=== PATIENT | male | born 1995 | race Caucasian/White ===

== ENCOUNTER 2024-07-03 19:38 | Emergency (ER) | payer BC, SELFPAY ==
[2024-07-03 19:39] VITALS: BP 128/81; PULSE 100; RESP 16; TEMP 36.6; O2SAT 100
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
--- NOTE | 2024-07-03 20:07 | RAD_ITS ---
PROCEDURE: KNEE 4 OR MORE VIEWS 07/03/2024 REASON FOR EXAM: INJURY/PAIN TECHNIQUE: 5 views of the right knee COMPARISON: None FINDINGS: Bones: No fracture. No suspicious bone lesion. Posterior fabella. Joints: Normal alignment. Mild degenerative changes. Effusion: Small suprapatellar joint effusion. Soft tissues: Soft tissues are unremarkable. Other: RAD/Knee 4 or More Views IMPRESSION: No acute fracture or dislocation. Small suprapatellar joint effusion. Reading Location: [facility]
[2024-07-03 20:20] VITALS: BMI 35.7
[2024-07-03 21:17] VITALS: BP 124/74; PULSE 73; RESP 16; TEMP 36.6; O2SAT 99
== END 2024-07-03 21:19 | disposition home or self-care (01) ==
PROVIDERS: Emergency Provider Emergency Medicine; Visit Provider Emergency Medicine
DX: S83.411A Sprain of medial collateral ligament of right knee, initial encounter (principal); F17.290 Nicotine dependence, other tobacco product, uncomplicated; V86.55XA Driver of 3- or 4- wheeled all-terrain vehicle (ATV) injured in nontraffic accident, initial encounter
CPT/HCPCS: 73564; 99284

== ENCOUNTER → 2024-07-05 | Outpatient (CLI) | payer BC, SELFPAY ==
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
--- NOTE | 2024-07-05 17:20 | MRI_ITS ---
PROCEDURE: LOWER EXT JOINT ONLY (ROUTINE) 07/05/2024 REASON FOR EXAM: ASSESS MCL TEAR, AND MENISCUS TECHNIQUE: MRI of the right lower Extremity. Multiplanar and multisequence images were obtained without IV contrast administration. COMPARISON: COMPARISON : None. FINDINGS: Bone Marrow: Minimal marrow contusion of the posterior lateral tibial plateau (grade 3 injury). Marrow signal is otherwise normal throughout. Cartilage is normal in all compartments. Effusion: Small joint effusion. Soft Tissues: Moderate subcutaneous edema surrounding the knee. Ligaments and Tendons: Acute complete tear through the midportion of the ACL. PCL is intact. The lateral meniscus is normal. The medial meniscus is normal. The quadriceps and patellar tendons are intact. The medial collateral ligament is lax and torn from its tibial attachment (grade 3 injury) and subsequently lax. The MCL femoral attachment remains intact. LCL is intact. Edema of the lateral head gastrocnemius consistent with muscle strain. MRI/Lower Ext Joint Only (Routine) IMPRESSION: 1. Acute ACL tear through its midsubstance. 2. Complete rupture of the distal MCL, from the tibial attachment. Tendon is subsequently lax. 3. Normal menisci. 4. No fracture. Minimal contusion of the posterior lateral tibial plateau. 5. Small joint effusion. Reading Location: [facility]
== END | disposition home or self-care (01) ==
LOC: MRI 15:33
PROVIDERS: Referring Provider Orthopaedic Surgery Sports Medicine; Visit Provider Orthopaedic Surgery Sports Medicine
DX: Z01.818 Encounter for other preprocedural examination (principal); S83.411A Sprain of medial collateral ligament of right knee, initial encounter; M25.561 Pain in right knee; V86.99XA Unspecified occupant of other special all-terrain or other off-road motor vehicle injured in nontraffic accident, initial encounter
CPT/HCPCS: 70030; 73721

== ENCOUNTER 2024-07-26 07:24 | Day surgery (SDC) | payer BC, SELFPAY ==
[2024-07-26] VITALS (11 sets, daily range): BP systolic 124–149; BP diastolic 80–101; PULSE 60–87; RESP 14–18; TEMP 35.8–36.4; O2SAT 96–100; BMI 34.9
[2024-07-26] MEDS: Lactated Ringers 1,000 ML 15 ML IV (07:58)
--- NOTE | 2024-07-26 08:22 | HP.PCM_ITS ---
HPI - General HPI Narrative CARY FREDERICK, is a 29 M who presents for right knee arthroscopy, anterior cruciate ligament reconstruction with quadriceps tendon autograft as well as MCL repair. No changes to h and p. right knee marked. rab, post op instructions, narcotic counselling done. plan for possible block. ok to proceed. no further questions or concerns. has FU booked for in 2 days. MR#: [id number] Acct: [id number] Name: CARY FREDERICK Rep #: [id number] : 1995 Provider: Dr. Elio Solis MD Age/Sex: 29/M Location: [facility] Status: Signed Intake Vital Signs 07/04/2509:45 07/06/2514:46 Height 6 ft 6 ft Weight: 263 lb 263 lb BMI 35.6 35.6 Intake Visit Reasons: RIGHT KNEE Chief Complaint: MRI review Accompanied by: Is patient in pain?: No Allergies No Known Allergies Allergy (Verified 07/06/24 15:49) Medications ?Medication ?Instructions ?Recorded ?Confirmed ?Type ibuprofen 200 mg tablet (Advil) 200 mg PO Q6H PRN 07/04/24 07/06/24 Hist ory Have you fallen in the past year?: No PFSH Medical History Right ACL tear Right knee pain Social History Smoking Status: Current every day smoker tobacco type: e-cigarettes alcohol intake: current alcohol intake frequency: a few times a week HPI RIGHT KNEE Details: This documentation accurately reflects the service provided and the decisions made by me, Dr. Elio Solis MD 07/06/24 0946. Part of today?s visit was documented by [ ], acting as scribe. CARY FREDERICK is a 29 year old M here today for FU R knee MRI. Supplemental Info [facility] [address] [place] [address] Lower Ext Joint Only (Routine) MR#: [id number] Acct: [id number] Name: CARY FREDERICK Rep #: [id number] : 1995 M 29 From: Pop Harmon DO PCP: Care Physician,No Primary Status: REG CLI Study: Lower Ext Joint Only (Routine) Date of Exam: 07/05/24 Exam# [id number] Ordering Dr: Elio Solis MD PROCEDURE: LOWER EXT JOINT ONLY (ROUTINE) 07/05/2024 REASON FOR EXAM: ASSESS MCL TEAR, AND MENISCUS TECHNIQUE: MRI of the right lower Extremity. Multiplanar and multisequence images were obtained without IV contrast administration. COMPARISON: COMPARISON : None. FINDINGS: Bone Marrow: Minimal marrow contusion of the posterior lateral tibial plateau (grade 3 injury). Marrow signal is otherwise normal throughout. Cartilage is normal in all compartments. Effusion: Small joint effusion. Soft Tissues: Moderate subcutaneous edema surrounding the knee. Ligaments and Tendons: Acute complete tear through the midportion of the ACL. PCL is intact. The lateral meniscus is normal. The medial meniscus is normal. The quadriceps and patellar tendons are intact. The medial collateral ligament is lax and torn from its tibial attachment (grade 3 injury) and subsequently lax. The MCL femoral attachment remains intact. LCL is intact. Edema of the lateral head gastrocnemius consistent with muscle strain. MRI/Lower Ext Joint Only (Routine) IMPRESSION: 1. Acute ACL tear through its midsubstance. 2. Complete rupture of the distal MCL, from the tibial attachment. Tendon is subsequently lax. 3. Normal menisci. 4. No fracture. Minimal contusion of the posterior lateral tibial plateau. 5. Small joint effusion. Reading [facility] Coding Level of Care Code Off vis,est,level 4 Diagnoses MCL sprain of right knee S83.411A Right ACL tear S83.511A Assessment and Plan Assessment and Plan (1) MCL sprain of right knee: Status: Acute Plan: 29-year-old man with a right knee full-thickness ACL tear and type III high- grade tear of the MCL from the tibial attachment. No meniscus tears or cartilage lesions. I explained the diagnosis prognosis of treatment options available to the patient. 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 Without surgery there be a higher chance of a subsequent secondary meniscus tears and cartilage lesions and risk of arthritis of the knee as well as instability when the kt michael is doing his job. Surgery be in the form of right knee anterior cruciate ligament reconstruction with quadriceps tendon autograft as well as MCL repair given the high-grade nature and gapping of the medial side with an internal brace construct to protect the repair. 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 He understands wished to go ahead with operation we will get this on hopefully within the next 3 to 4 weeks as soon as possible. Pros and cons risks and benefits were discussed with the patient including but not limited to infection, pain, stiffness, bleeding, damage to surrounding structures, neurovascular injury, recurrence or retear, failure or wear of hardware or fixation, instability, fracture, deep vein thrombosis and pulmonary embolism, anesthetic risks, , patient dissatisfaction, need for further surgery and other risks. Patient understood and wished to proceed with surgery, and signed the informed consent documentation. (2) Right ACL tear: Status: Acute Clinical Quality Measures Falls Risk Screening/Assistive Devices Have you fallen in the past year?: No Ortho Exam General General: Yes no acute distress Neurologic: Yes alert and Yes oriented x3 Psychologic: Yes reasonable and appropriate [facility] Medical History (Updated 07/13/24 @ 10:25 by Micaela Kovacs) Alcohol use Smoker History of edema Right ACL tear Right knee pain Home Medications ?Medication ?Instructions ?Recorded ?Last Taken ?Type ibuprofen 200 mg tablet (Advil) 600 mg PO Q6H PRN pain 07/04/24 Unknown History Allergy/AdvReac Type Severity Reaction Status Date / Time No Known Allergies Allergy Verified 07/26/24 07:47 Surgical History (Updated 07/13/24 @ 10:25 by Micaela Kovacs) No history of previous surgery Social History Smoking Status: Current every day smoker tobacco type: e-cigarettes alcohol intake: current alcohol intake frequency: a few times a week Vital Signs Vital Signs Vital Signs: 07/26/24 07:48 07/26/24 07:48 Temperature 96.5 F L Temperature Source Temporal Pulse Rate 76 Respiratory Rate 18 Respiratory Pattern Normal Blood Pressure 130/86 H Blood Pressure Mean 100 Blood Pressure Source Monitor Blood Pressure Position Semi-Fowlers Blood Pressure Location Left Arm Pulse Ox 97 Oxygen Delivery Method Room Air Weight Weight: 257 lb 15.053 oz Body Mass Index (BMI) 34.9
--- NOTE | 2024-07-26 08:22 | PCM.PRE.AN2 ---
ASA Classification* ASA Classification ASA Classification: 1 Assessment & Plan Anesthesia* Anesthesia Assessment Anesthesia Assessment: Discussed sedation and/or anesthesia options, risks, benefits, and alternatives with patient/parents/legal guardian/POA. Questions invited. The patient/parents/legal guardian/POA seems to understand and agrees to proceed with anesthesia plan. Reviewed the physical assessment, medical history, allergy history and patient home medications list prior to surgery/procedure/anesthetic and documented any changes. Performed airway and anesthesia risk assessments. Anesthesia Type Anesthesia Type: General and Block (Femoral) History Source History Obtained from:: Patient and Chart Anesthesia Focused Assessment* Temperature: 96.5 F Pulse Rate: 76 Blood Pressure: 130/86 Respiratory Rate: 18 Pulse Ox: 97 Oxygen Delivery Method: Room Air Airway Assessment Mouth opens: >3 cm Mallampati Score: II Teeth Condition: Intact Neck Range of motion (ROM): Full ROM Labs Anesthesia Preop lab: CBC CHEMISTRY COAG Pre-Assessment Diagnosis/Proposed Procedure Planned Operative Procedure(s): RIGHT KNEE ARHTROSCOPY ACL RECONSTRUCTION QUADRICEPS TENDON AUTOGRAFT MEDIAL COLLATERAL LIGAMENT REPAIR WITH INTERNAL BRACE Anesthesia History 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 When Was Last Pacemaker Check QUESTION #4 FULL TEXT: You/Your Family Experience fever (hyperthermia) with Anesthesia Last Oral Intake Last Oral intake: Last Oral Intake NPO since 22:00 07/26/24 07:48 Meds taken in AM with sips of No 07/26/24 07:48 water? Meds patient instructed to take am of surgery PONV PONV - biomass production manager: PONV - biomass production manager Female No 07/13/24 10:17 HX of Motion Sickness No 07/13/24 10:17 HX of N/V After Surgery No 07/13/24 10:17 Non-Smoker No 07/13/24 10:17 Duration of Surgery greater Yes 07/13/24 10:17 than 60 minutes Number of Risk Factors 1 07/13/24 10:17 PONV Score Low Risk 07/13/24 10:17 Height & Weight Height & Weight: Anesthesia: Height & Weight Height 6 ft 07/26/24 07:48 Weight: 117 kg 07/26/24 07:48 Body Mass Index (BMI) 34.9 07/26/24 07:48 Respiratory Assessment Respiratory Assessment - biomass production manager: Respiratory Tract Infection Hx - biomass production manager Hx Respiratory Tract Infection No 07/13/24 10:17 STOP Sleep Apnea STOP Sleep Apnea - biomass production manager: STOP Sleep Apnea - biomass production manager Hx Hypertension No 07/13/24 10:17 Hx Sleep Apnea No 07/13/24 10:17 CPAP BIPAP Do you snore loudly (louder No 07/13/24 10:17 than talking or can be heard Do you often feel tired/ No 07/13/24 10:17 fatigued/ sleepy during daytime? Has anyone observed you stop No 07/13/24 10:17 breathing during sleep? STOP Results Negative 07/13/24 10:17 QUESTION #5 FULL TEXT : Do you snore loudly (louder than talking or can be heard through closed doors)? 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 Specify any problems Hx of Preganancy in last 3 N/A 07/13/24 10:17 Months Nurse Filling Out Transfusion DSCHRIBER 07/13/24 10:17 & Questions: Date: 07/13/24 07/13/24 10:17 Time: 10:20 07/13/24 10:17 Patient unable to answer at this time (ie. confused, unrespo /Reproduction History /Reproductive History - biomass production manager: /Reproductive Hx- biomass production manager Hx Now No 07/13/24 10:17 Gestational Age (in weeks): EDC: Hx Hx Para Hx Section SAB No 07/13/24 10:17 Active Medications Active Medications: Current Medications Generic Name Dose Route Start Last Admin Trade Name Freq PRN Reason Stop Dose Admin Cefazolin Sodium 2 gm/ Sodium 110 mls @ 150 mls/hr 07/26/24 09:00 Chloride IV 07/26/24 09:43 INTRAOP ONE Lactated Ringer's 1,000 mls @ 15 mls/hr 07/26/24 07:45 07/26/24 07:58 IV 15 mls/hr .Q48H AURY Administration PFSH Medical History (Updated 07/13/24 @ 10:25 by Micaela Kovacs) Alcohol use Smoker History of edema Right ACL tear Right knee pain Home Medications ?Medication ?Instructions ?Recorded ?Last Taken ?Type ibuprofen 200 mg tablet (Advil) 600 mg PO Q6H PRN pain 07/04/24 Unknown History Allergy/AdvReac Type Severity Reaction Status Date / Time No Known Allergies Allergy Verified 07/26/24 07:47 Surgical History (Updated 07/13/24 @ 10:25 by Micaela Kovacs) No history of previous surgery Social History Smoking Status: Current every day smoker tobacco type: e-cigarettes alcohol intake: current alcohol intake frequency: a few times a week Review of Systems (Anesthesia) ROS Narrative System reviewed and no additional complaints, except as documented.
[2024-07-26] MEDS: Cefazolin 2 GM in 0.9% Normal Saline (100mL Bag) 100 ML IV (08:54)
[2024-07-26] MEDS: Epinephrine (1 mg/ml) 1 MG/ML VIAL (09:55)
--- NOTE | 2024-07-26 10:10 | RAD_ITS ---
PROCEDURE: KNEE 1 OR 2 VIEWS 07/26/2024 REASON FOR EXAM: KNEE ARTHROSCOPY TECHNIQUE: KNEE 1 OR 2 VIEWS Intraoperative fluoroscopy. Fluoroscopy time 41.1 seconds. Radiation dose 2.826 mGy. COMPARISON: Radiographs on 07/03/2024. FINDINGS: No acute bone abnormality is noted. Reconstruction of the anterior cruciate ligament. RAD/Knee 1 or 2 Views IMPRESSION: Reconstruction of the anterior cruciate ligament. Reading [facility]
--- NOTE | 2024-07-26 11:55 | OP.PCM_ITS ---
Problems Associated Problem List Diagnoses (1) Right ACL tear: (2) Right knee pain: (3) MCL sprain of right knee: Procedures Musculoskeletal [id number]: Other Procedure See Report Operative Report (Standard) Operative Information Date of Procedure: 07/26/24 Pre-Operative Diagnosis: Right knee ACL tear and MCL tear Post-Operative Diagnosis: Same Surgery/Procedure Performed: Right knee arthroscopy, quadriceps tendon autograft ACL reconstruction and MCL repair with Arthrex internal brace rehab services aide: Yes Medical Art Therapist: hodan Tasks completed by medical office assistant instructor: Retracting Additional marketing communications assistant?: No Type of Anesthesia: Block,Regional and General RN Documented Start/Stop Times: Operation Date: 07/26/24 09:00 Case Time Into Pre-Op 07/26/24 07:35 Anesthesia Start 07/26/24 08:54 Into Room 07/26/24 08:54 Out of Pre-Op 07/26/24 08:54 Procedure Start 07/26/24 09:17 Procedure End 07/26/24 11:52 Procedure Start Time: 09:17 Procedure Stop Time: 11:52 Select all DRAINS/GRAFTS/IMPLANTS that apply: Implanted device Implanted device details: arthrex anchors as detailed in op note Estimated Blood Loss: 50 Specimen collected: No Description of surgery: Patient brought to the operating room theater. Placed supine on the table. General anesthesia induced. 2 g IV Ancef administered prior to the start of the procedure. All bony prominences padded. SCD on the nonoperative leg. Tourniquet applied right thigh appropriately padded stress position of the patient's right side. Lower extremity prepped and draped in the usual sterile fashion allowing over 3 minutes drying time prior to draping. Preoperative timeout was performed to confirm the site patient and the surgery. I did an examination under anesthetic. There was grade 2 Lindsay poor endpoint as well as grade 2 opening on the medial side and valgus stress. Began by elevating the limb inflated the tourniquet to 250 mmHg. He is standard anterolateral and anteromedial arthroscopy portals. Did a full diagnostic arthroscopy. Cartilage in all 3 compartments were normal. Medial lateral meniscus was normal although there was some capsular sprain on the medial side. There is obvious medial gapping and a positive drive-through sign. ACL was torn in the mid substance. I removed and debrided the remaining stump of the ACL identified the back wall. PCL was intact. Meniscus probed found to be normal on both sides. Next I turned my attention to harvesting the quadriceps tendon mid substance. Made a transverse incision at the distal quadriceps insertion. The dissection down through skin and subcutaneous tissue achieved meticulous hemostasis. H arvested a size 9 using the Arthrex quadriceps pro harvester from the central third of the quadriceps Extra-articular made a 7 cm long graft. Truncated this proximally. Close the defect [id number] running suture with the Arthrex#2 FiberWire included suture. I then all the bulletized the graft on both ends. This measured 7 cm in length. The standard technique for fixing the adjustable button on the femoral side of the graft as well as the ABS button loop system on the tibial side. Tibial side was 9.5 mm in diameter and the femoral side was 10 mm in diameter. This was placed on tension with a wet sponge. I then turned my attention back to the knee. Drilled for the femoral tunnel. This measured 5 cm in length. Ensured that this was off the back wall in appropriate low and posterior. I then retrograde drilled 3 cm at 10 mm in diameter. Cleared away any bone dust past passing suture through the tunnel and out the anterior medial portal. Then did the same thing for the tibial side in line with the anterior horn lateral meniscus. Again passed a pass suture after clearing away the bone dust. Retrograde drilled to 9.5 mm with 3 cm in length. I then passed the femoral graft up into the tibial tunnel foot the button over the graft. I took intraoperative radiographs as the femoral side was not holding this turned out to be the femoral button was flipped inside the tunnel so I did remove this and redo the femoral sided button. Second time I flipped it took intraoperative radiographs as appropriately on the lateral cortex and delivered the femoral side by pulling on the shortening sutures 3 cm into the femoral tunnel then passed it into the tibial tunnel and again shorten this and attach the tibial button to that side and shorten these appropriately. The Lindsay was laminated strong endpoint no pivot shift. Sutures were cut short. I had also attached the internal brace sutures through the femoral button I took these down just distal to the fixation and inserted those into a Arthrex 4.75 mm swivel lock anchor with no tension with the knee in full extension. The graft was also tensioned with the knee in full extension no impingement. I then turned my attention to performing the MCL repair. I made a longitudinal incision proximal anteromedial tibial side in continuity with the incision for the ACL tibial fixation side. Carried dissection down through skin and subtenons tissue achieved meticulous hemostasis. I incised the sartorial fascia. Identified the longitudinal fibers of the MCL. These were indeed torn and had a small hematoma there. I then identified proximally again using intraoperative fluoroscopy the origin of the MCL at the medial epicondyle just proximal and posterior. There are attached Arthrex all suture fiber stitch 2.7 mm anchor. Tensioned this appropriately deployed the anchor. I removed the repair sutures and then used the internal brace suture brought this down distally. I then measured 1 cm from the joint line surface I attached another 2.7 mm fiber stitch all suture Arthrex anchor. I used the included sutures to plicate and repair the superficial origin. Then I took the internal brace down distal at th e 6 cm cheng and inserted this into an Arthrex 4.75 mm swivel lock anchor with the knee in varus stress with about 30 degrees of flexion at the distal attachment point of the MCL. The repair was stable and solid without being overly tensioned. Tourniquet let down wound thoroughly irrigated meticulous hemostasis achieved. Subcutaneous tissue closed with 2-0 Vicryl and skin with 3-0 Monocryl. Skin cleaned with right dry dressing followed by application of Steri-Strips Adaptic 4 x 4 gauze ABD dressing and Branden wrap with a hinged knee brace locked in full extension. Patient woken up from general anesthetic transferred off the operating table taken to postanesthetic care unit in stable condition. All sponge needle instrument counts were correct no complications. Plan WBAT in full extension, gentle passive ROM 0-90. CPT 94501, 52483 Surgical Findings: as above Complications Complications: No Admit VTE Documentation VTE Present on Admission: No VTE Mechan Device Prophylaxis: SCD's VTE Pharm Prophylaxis ordered?: No Reason prophylaxis not ordered: Treatment Not Indicated
--- NOTE | 2024-07-26 12:07 | PCM.POST.ANE ---
Anesthesia: Postop Eval I Current Vital Signs Temperature: 97.6 F Pulse Rate: 87 Blood Pressure: 138/87 Respiratory Rate: 14 Pulse Ox: 96 Assessment Airway patent: Yes Spontaneous unlabored respirations: Yes nausea: No Vomiting: No Anesthesia Complication: No Fluid Hydration Crystalloid volume administer (ml): 1,500 Total IV fluid infused: 1,500 Progress Note Anesthesia document: Postop Eval 1 completed: Yes
--- NOTE | 2024-07-26 12:08 | EX.PCM.DISCH ---
Discharge Instructions Diet Discharge Diet: No restrictions Activity Discharge Activity: Return to Normal Activity and Use Crutches Ice area for (Minutes): 10 Weight Bearing Status: Weight bearing as tolerated Lifting Restrictions: with brace, locked straight Keep extremity elevated above heart level: Operative Extremity Dressing / Incision Call your doctor if your incision/area has: Continuous Slow Oozing, Sudden Increased Bleeding, Increased Pain/ Swelling, Increased Redness, Foul Smelling Discharge and Swelling at the incision site Call your doctor if you observe: Fever of 101 or Higher, Coldness, Increased Pain and Numbness or Tingling Change Dressing in: leave in place till F/U Cleanse incision/area with: Do not get Incision Wet Follow Up Care Please Follow Up With: Elio Solis MD When: 2 days or within 2 weeks per your preference Test Results: Test results from this visit will be discussed in further detail at your follow-up appointment, if applicable. Discharge Plan Admission Attending Provider: Elio Solis Primary Care Provider: Care Physician,No Primary Instructions Patient Instructions: After Knee Arthroscopy Print Language: Afghan Discharge Orders/Prescriptions Prescriptions: New oxycodone-acetaminophen [Percocet] 5-325 mg tablet 1 tab PO Q4H MDD 6 PRN (Reason: pain) 5 Days Qty: 30 0RF No Action ibuprofen [Advil] 200 mg tablet 600 mg PO Q6H PRN (Reason: pain) Referrals / Follow Up: Elio Solis MD [Med Staff - Active Staff] - Care Physician,No Primary [Primary Care Provider] - Disposition Disposition (needs filled in before D/C Order can be placed): Home, Self Care
--- NOTE | 2024-07-26 16:36 | POSTOPAN2_ITS ---
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 respirations Mental status nausea No 07/26/24 12:07 [employer].TNES Vomiting No 07/26/24 12:07 [employer]OR [employer].TNES Anesthesia Postop Eval I: Fluid Summary Crystalloid volume administer 1,500 07/26/24 12:07 [employer].TNES (ml) Colloids volume administered ( ml) Blood Product volume administered (ml) Total IV fluid infused 1,500 07/26/24 12:07 [employer].TNES Anesthesia Postop Eval I: Summary Notes Anesthesia Complication No 07/26/24 12:07 [employer].TNES Anesthesia Complication Comment: Post-operative progress note Anesthesia: Postop Eval II Evaluation Mental status: Awake and Calm Pain Level: 0 nausea: No Vomiting: No Complications Anesthesia Complication: No
--- NOTE | 2024-07-26 16:36 | PCM.POSTANE2 ---
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 Spontaneous unlabored Yes 07/26/24 12:07 [email or web address] [email or web address] respirations Mental status nausea No 07/26/24 12:07 [email or web address] [email or web address] Vomiting No 07/26/24 12:07 [email or web address] [email or web address] Anesthesia Postop Eval I: Fluid Summary Crystalloid volume administer 1,500 07/26/24 12:07 [email or web address] [email or web address] (ml) Colloids volume administered ( ml) Blood Product volume administered (ml) Total IV fluid infused 1,500 07/26/24 12:07 [email or web address] [email or web address] Anesthesia Postop Eval I: Summary Notes Anesthesia Complication No 07/26/24 12:07 [email or web address] [email or web address] Anesthesia Complication Comment: Post-operative progress note Anesthesia: Postop Eval II Evaluation Mental status: Awake and Calm Pain Level: 0 nausea: No Vomiting: No Complications Anesthesia Complication: No
== END 2024-07-26 14:05 | disposition home or self-care (01) ==
LOC: SDC 07:25 → AC 07:29
PROVIDERS: Referring Provider Orthopaedic Surgery Sports Medicine; Visit Provider Orthopaedic Surgery Sports Medicine
PROC: (CPT 29888; principal; 2024-07-26 08:45)
DX: S83.511A Sprain of anterior cruciate ligament of right knee, initial encounter (principal); S83.411A Sprain of medial collateral ligament of right knee, initial encounter; X58.XXXA Exposure to other specified factors, initial encounter; F17.290 Nicotine dependence, other tobacco product, uncomplicated
CPT/HCPCS: 29888; 29999; 64447; 73560; 76000; C1713; J2405

== ENCOUNTER 2024-08-01 09:11 | Emergency (ER) | payer BC, SELFPAY ==
[2024-08-01 09:11] VITALS: BP 149/92; PULSE 112; RESP 16; TEMP 36.8; O2SAT 100; BMI 34.9
--- NOTE | 2024-08-01 09:25 | VDLE_ITS ---
Reason For Study Reason For Study: RLE Pain RIGHT LEFT GSV is normal. CFV is compressible, spontaneous, phasic, competent, CFV is compressible, spontaneous, phasic, competent and demonstrates normal augmentation. and demonstrates normal augmentation. FV is compressible, spontaneous, phasic, competent and demonstrates normal augmentation. POP V is compressible, spontaneous, phasic, competent and demonstrates normal augmentation. T/P Trunk is compressible. PTV is compressible. RT PerV is compressible. Procedure This is a venous duplex using B-mode, color flow and spectral Doppler. Exam performed portable in ED. The exam was diagnostic. A preliminary report was called and/or faxed to [facility]. VL/Venous Duplex US, Unilateral Interpretation Summary Deep veins of the right lower extremity are patent and compressible segmentally . There is no evidence of right lower extremity deep vein thrombosis. The right great saphenous vein appears patent a nd compressible segmentally. Ordering Physician: Jose Palomo Performed By: Vijay Quach RVT
--- NOTE | 2024-08-01 09:25 | EX.ED.DYSGE1 ---
HPI History of Present Illness Chief Complaint: Lower Extremity Injury Narrative Narrative: Patient is a 29-year-old male with past medical history of recent surgery right ACL and MCL from [facility] who presents to the emergency department chief complaint of right leg pain. He states that he called the surgeons office today and they advised him to come to the emergency department for a ultrasound for concern for a blood clot in his leg. Patient denies any history of blood clots. PFSH PFS Medical History Alcohol use Smoker History of edema Right ACL tear Right knee pain Home Medications ?Medication ?Instructions ?Recorded ?Last Taken ?Type ibuprofen 200 mg tablet (Advil) 600 mg PO Q6H PRN pain 07/04/24 Unknown History oxycodone-acetaminophen 5 mg-325 1 tab PO Q4H PRN pain 5 days #30 07/26/24 Unknown Rx mg tablet (Percocet) tabs Allergy/AdvReac Type Severity Reaction Status Date / Time No Known Allergies Allergy Verified 08/01/24 09:13 Surgical History No history of previous surgery Social History Smoking Status: Current every day smoker tobacco type: e-cigarettes alcohol intake: current alcohol intake frequency: a few times a week ROS ROS ED ROS Narrative Cardiovascular: Denies chest pain Respiratory: Denies shortness of breath Neurological: Denies numbness, wheeze, tingling Musculoskeletal: Complains of right calf pain as noted above Skin: Denies any new rashes or lesions EXAM Physical Exam Narrative Exam Narrative: General: Patient was lying in bed rest comfortably did not appear to be in acute distress Head: Atraumatic, normocephalic Eyes: PERRL bilaterally, EOMI bilaterally, no conjunctival injection noted Neck: Soft, supple, trachea midline Cardiovascular: Patient tachycardic with regular rhythm Respiratory: Clear to auscultation bilaterally Musculoskeletal: Compartments in the right lower extremity are soft and compressible Extremities: DP pulses +2/4 in the right lower extremity, +5/5 strength noted in the bilateral upper and lower extremities Neurological: Patient follow commands knew that he was at [facility] years 2024 sensation grossly intact Skin: Warm, dry, patient has bandages noted on the right knee from his surgery no surrounding erythema noted Const Vital Signs: 08/01/24 09:11 Temperature 98.2 F Temperature Source Oral Pulse Rate 112 H Respiratory Rate 16 Blood Pressure 149/92 H Blood Pressure Mean 111 Pulse Ox 100 Oxygen Delivery Method Room Air MDM MDM MDM Narrative Medical decision making narrative: Patient is a 29-year-old male who presents to the emergency department the chief complaint of right calf pain and concern for DVT. On the differential diagnose includes but not limited to DVT, superficial venous thrombosis, calf strain. Once workup is obtained reviewed he will be reevaluated. Patient's DVT study was negative. Discussed results with patient he like to go home this point time. He is advised to follow-up with his orthopedic surgeon the outpatient setting return with worsening symptoms or concerns. He is agreeable to plan all questions answered discharged home in stable condition Discharge Plan Triage Chief Complaint: Lower Extremity Injury ED Provider: Jose Palomo Dx/Rx/DC Orders Clinical Impression: Leg pain, right, History of repair of anterior cruciate ligament of right knee, S/P MCL repair Prescriptions: No Action ibuprofen [Advil] 200 mg tablet 600 mg PO Q6H PRN (Reason: pain) oxycodone-acetaminophen [Percocet] 5-325 mg tablet 1 tab PO Q4H MDD 6 PRN (Reason: pain) 5 Days Qty: 30 0RF Primary Care Provider: Care Physician,Tanisha Primary Referrals: Care Physician,No Primary [Primary Care Provider] - Activity Restrictions/Additional Instructions: Follow-up with your orthopedic surgeon in the outpatient setting. Return with worsening symptoms or any other concerns. Your ultrasound today was negative for any evidence of blood clots. Print Language: Lithuanian Disposition Disposition: Home, Self Care
[2024-08-01 10:13] VITALS: BP 124/78; PULSE 66; RESP 18; TEMP 36.6; O2SAT 99
== END 2024-08-01 10:14 | disposition home or self-care (01) ==
PROVIDERS: Emergency Provider Emergency Medicine; Visit Provider Emergency Medicine
DX: M79.604 Pain in right leg (principal); Z98.890 Other specified postprocedural states; F17.290 Nicotine dependence, other tobacco product, uncomplicated
CPT/HCPCS: 93971; 99282

== ENCOUNTER 2024-12-22 07:30 | Outpatient (RCR) | payer BC, SELFPAY ==
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
--- NOTE | 2024-12-22 08:28 | HP.PTDCSUM ---
Discharge Summary D/C summary: It has been my pleasure to treat CARY FREDERICK referred by Dr. Elio Solis MD, with the diagnosis of S/P PROCEDURAL, KNEE ARTHROSCOPIC ,QUADRICEPS TENDON GRAFT ACL& MCL REPAIR for a total of 40 visit(s). Discharge Date: 12/22/24 Please see the following information for a summary of their discharge status. Subjective Subjective: Ready to go back to work Sees DR Cardenas Pain Right Knee: Pain Intensity (Out of 10): 0 Overall Improvement % Improvement: 95 Objective Objective/Function: GAIT: ambulates with reciprocal pattern MMT: quads 65.5 ,hamstrings 81.1 AROM: 0-130 supine knee flexion SLS: 60 sec FLEXABILITY: quads min tight Goals Goal 1:: Patient to be I with HEP for ACL and MCL Goal Progress: Goal Met Goal 2:: This patient demonstrate AROM supine 0-130 degrees to improve stairs Goal Progress: Goal Met Goal 3:: This patient to normalize gait pattern Goal Progress: Goal Met Goal 4:: Patient to improve peak force quads/hams/hip by 5-10# to improve function( NEW GOAL) Goal Progress: Goal Met Goal 5:: Patient to improve LFES score by 10-15 points to improve gait and QOL( NEW GOAL) Goal Progress: Goal Met Goal 6:: Patient to return to prior level of activity /job demands with min limitations Goal Progress: Goal Met Plan Plan: D/C TO HEP AND RTD WORK D/C Information Discharge Comments: D/C AND RTW d/c sentence: If there are questions or concerns regarding this patient's physical therapy, please feel free to call me at [phone]. Thank you for the referral of this patient. Sincerely, Les Ludwig, PT, Cert MDT, OCS Balance/Gait/Functional tests Balance/Special Test Scores Lower Extremity Functional Score: 64 Improvement % Improvement: 95
== END 2024-12-22 12:27 | disposition home or self-care (01) ==
LOC: PT 07:30
PROVIDERS: Referring Provider Orthopaedic Surgery Sports Medicine; Visit Provider Orthopaedic Surgery Sports Medicine
DX: Z98.890 Other specified postprocedural states (principal)
CPT/HCPCS: 97016; 97032; 97110; 97161; 97530